=== PATIENT | male | born 1990 | race Caucasian/White ===

== ENCOUNTER 2021-07-13 22:59 | Emergency (ER) | payer OTHER ==
[2021-07-13] MEDS ORDERED: Albuterol/Ipratropium 3.0-0.5 MG/3 ML Neb Soln NEB ONE (23:54)
--- NOTE | 2021-07-14 | EDM.PDOC ---
ED HPI GENERAL MEDICAL PROBLEM - General Stated Complaint: PASSED OUT/HEART ISSUES Time Seen by Provider: 07/13/21 23:15 Source of Information: Reports: Patient, Family History Limitations: Reports: No Limitations - History of Present Illness INITIAL COMMENTS - FREE TEXT/NARRATIVE: c/o sob from [facility], here with sig other for a wedding tomorrow drove 2d from [place] to [place], then 24h from [place] to here, arrived yesterday helping set up for wedding today, ate lunch and felt okay, some sob this afternoon, inc'd sob this evening and EMS called no CP PO 82% on RA on arrival, inc'd to 90% on 2 l/min NC PMH: asthma, partially collapsed lung x 6m but not a candidate for surgery until he has wt reduction surgery next yr, morbidly obese meds: on 2 meds for heart, has SVT by hx with HR 200, then a procedure that caused scar tissue that sounds like ablation, alb HFA for rescue, HFA for maintenance (does not know name), alb neb prn, 2 heart pills with one that begins with letter "B" does not know names of med, has not been taking his meds, alb HFA last this AM has had Pfizer vax x 2, never had COVID, not had flu vax - Related Data Allergies Allergy/AdvReac Type Severity Reaction Status Date / Time No Known Allergies Allergy Verified 07/14/21 01:16 Home Meds: Home Meds Albuterol Sulfate 1 dose INH ASDIRECTED PRN 07/14/21 [History] Albuterol [Ventolin HFA] 1 puff INH ASDIRECTED PRN 07/14/21 [History] Azithromycin 250 mg PO DAILY #4 tablet 07/14/21 [Rx] Baclofen 20 mg PO TID PRN 07/14/21 [History] Metoprolol Tartrate 100 mg PO BID 07/14/21 [History] lisinopriL [Lisinopril] 10 mg PO DAILY 07/14/21 [History] predniSONE 20 mg PO DAILY #6 tab 07/14/21 [Rx] ED ROS GENERAL - Review of Systems Review Of Systems: See Below Constitutional: Reports: No Symptoms. Denies: Fever HEENT: Reports: No Symptoms Respiratory: Reports: Shortness of Breath Cardiovascular: Reports: No Symptoms. Denies: Chest Pain Endocrine: Reports: No Symptoms GI/Abdominal: Reports: No Symptoms : Reports: No Symptoms Musculoskeletal: Reports: No Symptoms Skin: Reports: No Symptoms Neurological: Reports: No Symptoms Psychiatric: Reports: No Symptoms Hematologic/Lymphatic: Reports: No Symptoms Immunologic: Reports: No Symptoms ED EXAM, GENERAL - Physical Exam Exam: See Below Free Text/Narrative:: morbidly obese with inc'd girth centrally Exam Limited By: No Limitations General Appearance: Alert, WD/WN, No Apparent Distress, Other (talks 10-word sentences, mild dyspnea, mild tachypnea, no cough) Nose: Normal Inspection, Normal Mucosa Throat/Mouth: Normal Inspection, Normal Lips, Normal Teeth, Normal Voice Head: Atraumatic, Normocephalic Neck: Normal Inspection, Supple, Non-Tender, Full Range of Motion. No: Lymphadenopathy (R), Lymphadenopathy (L) Respiratory/Chest: Accessory Muscle Use, Other (no definite wheeze, mild de'cd BS b/l, sound symmetric although body habitus limits exam). No: Rhonchi, Retractions, Splinting Cardiovascular: Regular Rate, Rhythm, No Murmur, Other (1+ pretib edema b/l, symmetric) GI/Abdominal: Soft, Non-Tender Back Exam: Normal Inspection Neurological: Alert, Oriented, CN II-XII Intact, Normal Cognition, No Motor/Sensory Deficits Psychiatric: Normal Affect, Normal Mood Skin Exam: Warm, Dry, Intact, Normal Color, No Rash Lymphatic: No Adenopathy #1 Interpretation EKG Date: 07/14/21 Time: 03:22 Rate (Beats/Min): 115 [place]: Normal QRS: Normal (no LVH, no acute/ST changes, sinus tach) ST-T: Normal QT: Normal Comparison: NA - No Prior EKG Course - Orders/Labs/Meds Orders: Active Orders 24 hr Category Date Time Status Chest 2V [CR] Stat Exams 07/13/21 23:53 Taken Isolation [COMM] Routine Oth 07/13/21 23:54 Ordered EKG 12 Lead [EK] Routine Ther 07/14/21 03:25 Ordered Labs: Laboratory Tests 07/13/21 07/13/21 07/13/21 Range/Units 23:58 23:58 23:58 WBC 11.1 H (3.2-10.1) x10-3/uL RBC 5.23 (3.90-5.90) x10(6)uL Hgb 13.2 (12.9-17.7) g/dL Hct 42.4 (38.3-50.1) % MCV 81.1 (80.8-98.7) fL MCH 25.2 L (27.0-33.3) pg MCHC 31.0 (28.7-35.3) g/dL RDW 17.4 H (12.4-15.0) % Plt Count 266 (117-477) x10(3)uL MPV 8.8 (6.7-11.0) fL Neut % (Auto) 62.9 (40.3-71.8) % Lymph % (Auto) 24.5 (15.8-45.3) % Brooke % (Auto) 7.5 (5.5-15.2) % Eos % (Auto) 4.2 (0.1-6.8) % Baso % (Auto) 0.9 (0.3-3.8) % Neut # (Auto) 7.0 H (1.7-6.9) x10-3/uL Lymph # (Auto) 2.7 (0.5-4.5) x10-3/uL Brooke # (Auto) 0.8 (0.0-1.2) x10-3/uL Eos # (Auto) 0.5 (0.0-0.6) x10-3/uL Baso # (Auto) 0.1 (0.0-0.3) x10-3/uL Sodium 145 (135-145) mmol/L Potassium 4.3 (3.5-5.3) mmol/L Chloride 105 (100-110) mmol/L Carbon Dioxide 36 H (21-32) mmol/L BUN 18 (7-18) mg/dL Creatinine 1.3 (0.70-1.30) mg/dL Est Cr Clr Drug Dosing TNP Estimated GFR (MDRD) > 60 (>60) BUN/Creatinine Ratio 13.8 (9-20) Glucose 249 H (80-116) mg/dL Calcium 8.9 (8.6-10.2) mg/dL Total Bilirubin 0.3 (0.1-1.3) mg/dL AST 23 (5-25) IU/L ALT 53 H (12-36) U/L Alkaline Phosphatase 119 H (56-112) IU/L Troponin I (4.0-60.3) pg/mL C-Reactive Protein 2.5 H (0.5-0.9) mg/dL Total Protein 7.5 (6.0-8.0) g/dL Albumin 3.2 L (3.5-5.2) g/dL Globulin 4.3 g/dL Albumin/Globulin Ratio 0.7 SARS-CoV-2 RNA (ANGELA) (NEGATIVE) 07/13/21 07/14/21 07/14/21 Range/Units 23:58 01:20 02:14 WBC (3.2-10.1) x10-3/uL RBC (3.90-5.90) x10(6)uL Hgb (12.9-17.7) g/dL Hct (38.3-50.1) % MCV (80.8-98.7) fL MCH (27.0-33.3) pg MCHC (28.7-35.3) g/dL RDW (12.4-15.0) % Plt Count (117-477) x10(3)uL MPV (6.7-11.0) fL Neut % (Auto) (40.3-71.8) % Lymph % (Auto) (15.8-45.3) % Brooke % (Auto) (5.5-15.2) % Eos % (Auto) (0.1-6.8) % Baso % (Auto) (0.3-3.8) % Neut # (Auto) (1.7-6.9) x10-3/uL Lymph # (Auto) (0.5-4.5) x10-3/uL Brooke # (Auto) (0.0-1.2) x10-3/uL Eos # (Auto) (0.0-0.6) x10-3/uL Baso # (Auto) (0.0-0.3) x10-3/uL Sodium (135-145) mmol/L Potassium (3.5-5.3) mmol/L Chloride (100-110) mmol/L Carbon Dioxide (21-32) mmol/L BUN (7-18) mg/dL Creatinine (0.70-1.30) mg/dL Est Cr Clr Drug Dosing Estimated GFR (MDRD) (>60) BUN/Creatinine Ratio (9-20) Glucose (80-116) mg/dL Calcium (8.6-10.2) mg/dL Total Bilirubin (0.1-1.3) mg/dL AST (5-25) IU/L ALT (12-36) U/L Alkaline Phosphatase (56-112) IU/L Troponin I 106.5 H* 108.8 H* (4.0-60.3) pg/mL C-Reactive Protein (0.5-0.9) mg/dL Total Protein (6.0-8.0) g/dL Albumin (3.5-5.2) g/dL Globulin g/dL Albumin/Globulin Ratio SARS-CoV-2 RNA (ANGELA) Negative (NEGATIVE) Meds: Medications Discontinued Medications Generic Name Dose Route Start Last Admin Trade Name Freq PRN Reason Stop Dose Admin Albuterol 2.5 mg 07/14/21 00:43 07/14/21 00:53 Albuterol 0.083% 2.5 Mg/3 Ml Neb Soln NEB 07/14/21 00:44 2.5 mg ONETIME ONE Administration Albuterol/Ipratropium 3 ml 07/13/21 23:54 07/14/21 00:50 Albuterol/Ipratropium 3.0-0.5 Mg/3 Ml Neb Soln NEB 07/13/21 23:55 3 ml ONETIME ONE Administration Azithromycin 500 mg 07/14/21 03:37 07/14/21 04:04 Azithromycin 500 Mg Tab PO 07/14/21 03:38 500 mg ONETIME ONE Administration Prednisone 40 mg 07/14/21 03:38 07/14/21 04:04 Prednisone 20 Mg Tab PO 07/14/21 03:39 40 mg NOW ONE Administration - Re-Assessments/Exams Free Text/Narrative Re-Assessment/Exam: 07/14/21 13:40 pt ambulating to restroom refused to be admitted despite dangerously O2 and strongly being encouraged to do so, said to him "it is your decision" trop x 2 both inc'd nearly 2x ULN, likely chronic although pt told he may have had ischemic cardiomyopathy d/t hypoxia which may progress to an ID and CxR on prelim ED read with cardiomegaly pt h/o "partially collapsed lungs" probably refers to Pickwickian syndrome with inc'd abd girth and inadequate excursion of diaphragm rather than true pneumo, which was not seen on CxR Departure - Departure Time of Disposition: 03:32 Disposition: Against Medical Advice 07 Condition: Undetermined Clinical Impression: Hypoxia, Asthma exacerbation, Elevated C-reactive protein (CRP), Hyperglycemia, Sinus tachycardia, Elevated troponin, Cardiomegaly - Discharge Information *PRESCRIPTION DRUG MONITORING PROGRAM REVIEWED*: Not Applicable *COPY OF PRESCRIPTION DRUG MONITORING REPORT IN PATIENT BERNICE: Not Applicable Prescriptions: Azithromycin 250 mg PO DAILY #4 tablet predniSONE 20 mg PO DAILY #6 tab Instructions: Hypoxia, Asthma, Adult, Hyperglycemia, Sinus Tachycardia Referrals: PCP,Not In Area [Primary Care Provider] - Forms: ED Department Discharge Additional Instructions: Your oxygen is in the mid 80s on room air and will drop even lower when you sleep. This is a dangerous and life threatening level as there is not sufficient oxygen going to the heart and brain as well as other vital organs, which can cause heart attacks, strokes and . There appears to be infection with an increased c-reactive protein, most likely from the lungs. For infection, take azithromycin 250 mg 1 tab daily for 4 days beginning tomorrow. To keep your lungs open, take prednisone 20 mg 1 tab daily for 6 days beginning tomorrow. Continue your albuterol inhaler or nebulizer every 3-4 hours as needed for wheezing and shortness of breath. Continue your other regular medications. While it is best that you be admitted to the hospital, please return to the Emergency Department at anytime as more meds can be given here to help your breathing and heart and circulation. - My Orders Last 24 Hours: My Active Orders 07/13/21 23:53 Chest 2V [CR] Stat 07/13/21 23:54 Isolation [COMM] Routine 07/14/21 03:25 EKG 12 Lead [EK] Routine - Assessment/Plan Last 24 Hours: My Active Orders 07/13/21 23:53 Chest 2V [CR] Stat 07/13/21 23:54 Isolation [COMM] Routine 07/14/21 03:25 EKG 12 Lead [EK] Routine
[2021-07-14] MEDS ORDERED: Albuterol 0.083% 2.5 MG/3 ML Neb Soln NEB ONE (00:43)
[2021-07-14] MEDS ORDERED: Azithromycin 500 MG Tab PO ONE (03:37)
[2021-07-14] MEDS ORDERED: predniSONE 20 MG Tab PO ONE (03:38)
--- NOTE | 2021-07-16 11:47 | CR ---
INDICATION: Short of breath. History of asthma. History of partial collapsed lung x six months. CHEST, TWO VIEWS: Two PA views and two lateral views of the chest were obtained 07/14/21 - no comparisons. Flattened diaphragm leaves, prominent AP diameter and hyperaeration suggests COPD. Exogenous obesity is noted. The heart and mediastinum are unremarkable. Overlying EKG leads are noted. Bony structures appeared generally intact. Somewhat heavy markings suggest interstitial fibrosis of mild degree, without a definite active infiltrate or effusion identified. IMPRESSION: 1. No definite acute process - some interstitial prominence, likely fibrotic in nature, but difficult to exclude active disease. 2. COPD. 3. Exogenous obesity. MTDD
== END 2021-07-14 04:15 | disposition left against medical advice (07) ==
LOC: FB.ED 22:59
DX: J45.901 Unspecified asthma with (acute) exacerbation (principal); R09.02 Hypoxemia; R79.82 Elevated C-reactive protein (CRP); R00.0 Tachycardia, unspecified; I51.7 Cardiomegaly; R73.9 Hyperglycemia, unspecified; Z20.822 Contact with and (suspected) exposure to COVID-19
CPT/HCPCS: 36415; 71046; 80053; 84484; 85025; 86140; 87635; 87804; 93005; 94640; 99285; A9270; J7512; J7620-GY; U0002